=== PATIENT | male | born 1980 | race African-American/Black ===

== ENCOUNTER 2022-09-12 10:05 | Outpatient (CLI) | payer OTHER | END 2022-09-12 10:06 | disposition home or self-care (01) | LOC: MRI 10:05 | DX: G81.11 Spastic hemiplegia affecting right dominant side (principal); G93.89 Other specified disorders of brain; R93.0 Abnormal findings on diagnostic imaging of skull and head, not elsewhere classified | CPT/HCPCS: 70553 ==